=== PATIENT | male | born 1980 | race Caucasian/White ===

== ENCOUNTER → 2020-02-29 | Outpatient (CLI) | payer OTHER ==
[2020-02-29 20:15] LABS: Urine Alcohol Negative (Negative); Urine Barbiturate Negative (Negative); Urine Cocaine Negative (Negative); Urine Methadone Negative (Negative); Urine Opiates Negative (Negative); Urine Phencyclidine Negative (Negative)
== END | disposition home or self-care (01) ==
LOC: LABWHC1 13:12
PROVIDERS: ATTEND Internal Medicine Critical Care Medicine
DX: Z51.81 Encounter for therapeutic drug level monitoring (principal); Z79.899 Other long term (current) drug therapy
CPT/HCPCS: 36415; 80306; 80320

== ENCOUNTER → 2020-05-31 | Outpatient (CLI) | payer OTHER ==
[2020-06-01 13:25] LABS: Serum Amphetamine Negative; Serum Barbiturates Negative; Serum Benzodiazepine Negative; Serum Cocaine Negative; Serum Methadone Negative; Serum Opiates Negative; Serum Phencyclidine Negative; Serum Propoxyphene Negative; Serum THC (Cannabis) Negative
== END | disposition home or self-care (01) ==
LOC: LABWHC1 11:48
PROVIDERS: ATTEND Internal Medicine Critical Care Medicine
DX: Z09 Encounter for follow-up examination after completed treatment for conditions other than malignant neoplasm (principal); F10.21 Alcohol dependence, in remission
CPT/HCPCS: 36415; 80307; 80320

== ENCOUNTER → 2020-08-09 | Outpatient (CLI) | payer OTHER ==
[2020-08-10 14:57] LABS: Serum Amphetamine Negative; Serum Barbiturates Negative; Serum Benzodiazepine Negative; Serum Cocaine Negative; Serum Methadone Negative; Serum Opiates Negative; Serum Phencyclidine Negative; Serum Propoxyphene Negative; Serum THC (Cannabis) Negative
== END | disposition home or self-care (01) ==
LOC: LABWHC1 11:56
PROVIDERS: ATTEND Internal Medicine Critical Care Medicine
DX: Z09 Encounter for follow-up examination after completed treatment for conditions other than malignant neoplasm (principal); Z87.898 Personal history of other specified conditions
CPT/HCPCS: 36415; 80307; 80320

== ENCOUNTER → 2021-08-08 | Outpatient (CLI) | payer OTHER ==
[2021-08-09 11:32] LABS: Serum Amphetamine Negative; Serum Barbiturates Negative; Serum Benzodiazepine Negative; Serum Cocaine Negative; Serum Methadone Negative; Serum Opiates Negative; Serum Phencyclidine Negative; Serum Propoxyphene Negative; Serum THC (Cannabis) Negative
== END | disposition home or self-care (01) ==
LOC: LABWHC1 08:19 → EDSTATUS 08:21
PROVIDERS: ATTEND Internal Medicine Critical Care Medicine
DX: F10.10 Alcohol abuse, uncomplicated (principal); Z86.59 Personal history of other mental and behavioral disorders
CPT/HCPCS: 36415; 80307

== ENCOUNTER 2021-09-29 17:23 | Emergency (ER) | payer OTHER ==
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
--- NOTE | 2021-09-29 18:27 | XR ---
EXAMINATION TYPE: XR hand complete bilateral DATE OF EXAM: 09/29/2021 COMPARISON: NONE HISTORY: Pain TECHNIQUE: 3 views each hand FINDINGS: Metacarpals are intact. I see no fracture nor dislocation. The fingers are intact. Joint sp aces appear normal. Carpal bones are intact. IMPRESSION: Negative bilateral hand exam. No fracture.
--- NOTE | 2021-09-29 18:28 | XR ---
EXAMINATION TYPE: XR wrist complete BILATERAL DATE OF EXAM: 09/29/2021 COMPARISON: NONE HISTORY: Pain TECHNIQUE: 4 views each wrist FINDINGS: The carpal bones appear intact. I see no fracture nor dislocation. Scaphoid bones are intac t. The joint spaces are normal. IMPRESSION: Negative bilateral wrist exam. No fracture.
[2021-09-29 19:06] VITALS: BP 127/88; PULSE 62; RESP 16; TEMP 98.1
== END 2021-09-29 19:05 | disposition home or self-care (01) ==
LOC: EC 17:23
DX: S69.92XA Unspecified injury of left wrist, hand and finger(s), initial encounter (principal); M25.531 Pain in right wrist; V89.2XXA Person injured in unspecified motor-vehicle accident, traffic, initial encounter
CPT/HCPCS: 29125; 99283